=== PATIENT | male | born 1940 | race Hispanic/Latino ===

== ENCOUNTER → 2017-11-24 | Outpatient (CLI) | payer OTHER ==
[~2017-11-24] MED LIST: AMLO5TAB2 PO; CITA-107 PO; ESOM40CA54 PO; HYDR12.530 PO; IOPAMIDOL-370 75 ML VIAL IV ONE; LOSA100T29 PO; METF500T6 PO; METO100T14 PO; TAMS0.4C32 PO
== END | disposition home or self-care (01) ==
LOC: RAH 08:24
PROVIDERS: ATTEND Internal Medicine
DX: N28.1 Cyst of kidney, acquired (principal); N32.89 Other specified disorders of bladder; K76.89 Other specified diseases of liver; K57.90 Diverticulosis of intestine, part unspecified, without perforation or abscess without bleeding; R93.3 Abnormal findings on diagnostic imaging of other parts of digestive tract; Z85.46 Personal history of malignant neoplasm of prostate
CPT/HCPCS: 74178; Q9967

== ENCOUNTER 2017-12-16 09:19 | Day surgery (SDC) | payer OTHER ==
[~2017-12-16] VITALS: Ht 170.2 cm; Wt 67.9 kg
[~2017-12-16 09:19] MED LIST changes: -AMLO5TAB2 PO; -CITA-107 PO; -ESOM40CA54 PO; -HYDR12.530 PO; -IOPAMIDOL-370 75 ML VIAL IV ONE; -LOSA100T29 PO; -METF500T6 PO; -METO100T14 PO; +SODIUM CHLORIDE 0.9% 1000ML 1,000 ML IV ONE; -TAMS0.4C32 PO
[2017-12-16 10:18] VITALS: BP 98/68
[2017-12-16] MEDS ORDERED: HYDR12.530 PO (10:32)
[2017-12-16] MEDS ORDERED: AMLO5TAB2 PO (10:32)
[2017-12-16] MEDS ORDERED: LOSA100T29 PO (10:32)
[2017-12-16] MEDS ORDERED: CITA-107 PO (10:32)
[2017-12-16] MEDS ORDERED: TAMS0.4C32 PO (10:32)
[2017-12-16] MEDS ORDERED: ESOM40CA54 PO (10:32)
[2017-12-16] MEDS ORDERED: METF500T6 PO (10:32)
[2017-12-16] MEDS ORDERED: METO100T14 PO (10:33)
[2017-12-16] MEDS ORDERED: PROPOFOL 1000 MG/100 ML 100 ML IV ONE (11:22)
[2017-12-16] MEDS ORDERED: LEVOFLOXACIN 500 MG/D5W 100 ML 100 ML ONE (11:49)
[2017-12-16 11:58] VITALS: BP 75/37
== END 2017-12-16 13:20 | disposition home or self-care (01) ==
LOC: DAH 09:19 → ENDO 09:19
PROVIDERS: ATTEND Internal Medicine
DX: K76.89 Other specified diseases of liver (principal); K31.89 Other diseases of stomach and duodenum; E78.5 Hyperlipidemia, unspecified; I10 Essential (primary) hypertension; F41.9 Anxiety disorder, unspecified; F32.9 Major depressive disorder, single episode, unspecified; Z90.49 Acquired absence of other specified parts of digestive tract; Z85.46 Personal history of malignant neoplasm of prostate; Z79.899 Other long term (current) drug therapy; Z88.8 Allergy status to other drugs, medicaments and biological substances; K21.0 Gastro-esophageal reflux disease with esophagitis; K44.9 Diaphragmatic hernia without obstruction or gangrene; D12.6 Benign neoplasm of colon, unspecified; K64.9 Unspecified hemorrhoids; Z68.24 Body mass index [BMI] 24.0-24.9, adult; Z80.0 Family history of malignant neoplasm of digestive organs; R63.4 Abnormal weight loss; R93.3 Abnormal findings on diagnostic imaging of other parts of digestive tract; I45.10 Unspecified right bundle-branch block
CPT/HCPCS: 36415; 43238; 82150; 82378; 82948; 93005; A4215; A4606; J1956; J2704; J7030; 43232

== ENCOUNTER → 2018-07-13 | Outpatient (CLI) | payer OTHER ==
[~2018-07-13] MED LIST changes: +AMLO5TAB7 PO; +CITA-107 PO; +ESOM40CA54 PO; +HYDR12.530 PO; +LOSA100T20 PO; +METF-444 PO; +METO100T14 PO; -SODIUM CHLORIDE 0.9% 1000ML 1,000 ML IV ONE; +TAMS0.4C32 PO
== END | disposition home or self-care (01) ==
LOC: RAH 08:31
PROVIDERS: ATTEND Internal Medicine Gastroenterology
DX: K86.2 Cyst of pancreas (principal); N28.1 Cyst of kidney, acquired; K76.89 Other specified diseases of liver; I70.90 Unspecified atherosclerosis; Z90.49 Acquired absence of other specified parts of digestive tract
CPT/HCPCS: 76700

== ENCOUNTER 2019-07-29 06:22 | Emergency (ER) | payer OTHER ==
[~2019-07-29 06:22] MED LIST changes: -AMLO5TAB7 PO; +AMLO5TAB9 PO; -LOSA100T20 PO; +LOSA100T58 PO
[2019-07-29] MEDS ORDERED: HYDROCODONE/ACETAMINOPHEN 5/325 MG TAB ONE (07:25)
== END 2019-07-29 08:39 | disposition home or self-care (01) ==
LOC: EDH 06:22
DX: S20.212A Contusion of left front wall of thorax, initial encounter (principal); M54.5 Low back pain; I10 Essential (primary) hypertension; E78.00 Pure hypercholesterolemia, unspecified; W18.39XA Other fall on same level, initial encounter; Y93.89 Activity, other specified; Y92.89 Other specified places as the place of occurrence of the external cause; Y99.8 Other external cause status
CPT/HCPCS: 71100; 72070; 72100

== ENCOUNTER → 2019-09-05 | Outpatient (CLI) | payer OTHER ==
[~2019-09-05] MED LIST changes: +GADODIAMIDE 10 MMOL/20 ML VIAL IV ONE
== END | disposition home or self-care (01) ==
LOC: RAH 09:37
PROVIDERS: ATTEND Internal Medicine Gastroenterology
DX: K86.2 Cyst of pancreas (principal); R58 Hemorrhage, not elsewhere classified; K76.89 Other specified diseases of liver; R93.3 Abnormal findings on diagnostic imaging of other parts of digestive tract
CPT/HCPCS: 74183; A9579

== ENCOUNTER 2020-01-17 14:00 | Emergency (ER) | payer OTHER ==
[2020-01-17] MEDS ORDERED: ACETAMINOPHEN 325 MG TAB ONE (15:38)
[2020-01-17] MEDS ORDERED: AMOXICILLIN 500 MG CAPSULE PO ONE (16:21)
== END 2020-01-17 17:11 | disposition home or self-care (01) ==
LOC: EDH 14:00
DX: J02.0 Streptococcal pharyngitis (principal); R53.81 Other malaise; R53.83 Other fatigue; E78.00 Pure hypercholesterolemia, unspecified; I10 Essential (primary) hypertension; E11.9 Type 2 diabetes mellitus without complications; Z88.0 Allergy status to penicillin; Z88.1 Allergy status to other antibiotic agents; Z20.828 Contact with and (suspected) exposure to other viral communicable diseases

== ENCOUNTER 2020-01-21 11:05 | Inpatient (IN) | payer OTHER ==
[~2020-01-21] VITALS: Ht 172.7 cm; Wt 74.4 kg
[2020-01-21] MEDS ORDERED: SODIUM CHLORIDE 0.9% 500ML 500 ML IV ONE (13:54)
[2020-01-21] MEDS ORDERED: CEFTRIAXONE SODIUM 1 GM ONE (14:28)
[2020-01-21] MEDS ORDERED: AZITHROMYCIN 500MG+NS 250ML 250 ML IV ONE (14:29)
[2020-01-21] MEDS ORDERED: SODIUM CHLORIDE 0.9% 100 ML IV ONE (14:30)
[2020-01-21] MEDS: SODIUM CHLORIDE 0.9% 1000ML 1,000 ML IV SCH ×2 (17:08→22:30)
[2020-01-21] MEDS ORDERED: ONDANSETRON HCL 4 MG/2 ML VIAL IV PRN (17:15)
[2020-01-21] MEDS ORDERED: HYDRALAZINE HCL 20 MG/ML VIAL IV PRN (17:15)
[2020-01-21] MEDS ORDERED: ACETAMINOPHEN 325 MG TAB PO PRN ×2 (17:15)
[2020-01-21] MEDS ORDERED: GUAIFENESIN-DM 200/20 MG 10 ML PO PRN (17:15)
[2020-01-21] MEDS ORDERED: LACTULOSE 20 GM/30 ML UDCUP PO PRN (17:15)
[2020-01-21] MEDS ORDERED: AZITHROMYCIN 500MG+NS 250ML 250 ML IV SCH (17:15)
[2020-01-21] MEDS ORDERED: FAMOTIDINE 20MG TAB 20 MG TAB ONE (20:42)
[2020-01-21] MEDS ORDERED: DEXAMETHASONE 4 MG TAB ONE (20:43)
[2020-01-22] MEDS: SODIUM CHLORIDE 0.9% 1000ML 1,000 ML IV SCH ×3 (03:08→13:08)
--- NOTE | 2020-01-22 07:59 | NUR ---
Patient still in ER department,awaiting for patient to be transferred to medical floor in order to be able to initiate skilled Physical Therapy Evaluation as ordered by Chanda Contreras,AGACNPBC Addendum: 01/22/20 at 0800 by ISMAEL VELAZCO, PT PT Amended: Links added.
[2020-01-22] MEDS: ASPIRIN 325 MG TABLET PO SCH (09:00)
[2020-01-22] MEDS: FAMOTIDINE 20MG TAB 20 MG TAB PO SCH (09:00)
[2020-01-22] MEDS ORDERED: ASPIRIN 325 MG TABLET ONE (09:34)
[2020-01-22] MEDS ORDERED: FAMOTIDINE 20MG TAB 20 MG TAB ONE ×2 (09:34→21:11)
[2020-01-22] MEDS ORDERED: DEXAMETHASONE 4 MG TAB ONE ×2 (09:34→21:12)
[2020-01-22] MEDS ORDERED: ENOXAPARIN SODIUM 40 MG/0.4 ML SYRINGE SQ ONE (09:35)
[2020-01-22] MEDS ORDERED: BENZONATATE 100 MG CAPSULE PO ONE ×2 (09:35→21:12)
--- NOTE | 2020-01-22 13:49 | NUR ---
SPOKE TO [facility] PATIENT LIVES WITH SP[facility], WHO IS CURRENTLY HOSPITALIZED WITH COVID PATIENT IS PENDING RESULT .PATIENT IS NORMALLY ACTIVE & INDEPENDENT, DRIVES, NO DME OR SERVICES. SPOUSE WAS ADMITTED TUESDAY . DCP IS HOME, [facility] TO PROVIDE TRANSPORT Addendum: 01/22/[address] RN CM Amended: Links added.
[2020-01-22] MEDS ORDERED: AZITHROMYCIN 500MG+NS 250ML 250 ML IV ONE (17:16)
[2020-01-22] MEDS ORDERED: ACETAMINOPHEN 325 MG TAB ONE (17:17)
[2020-01-23] MEDS: SODIUM CHLORIDE 0.9% 1000ML 1,000 ML IV SCH (01:10)
[2020-01-23] MEDS ORDERED: BENZONATATE 100 MG CAPSULE PO ONE ×4 (04:08→21:35)
[2020-01-23] MEDS ORDERED: HYDRALAZINE HCL 20 MG/ML VIAL ONE (04:08)
--- NOTE | 2020-01-23 07:34 | NUR ---
pt. still in ER,awaiting for patient to be transferred to medical floor in order to be able to initiate skilled Physical Therapy Evaluation. Addendum: 01/23/20 at 0736 by ISMAEL VELAZCO PT PT Amended: Links added.
[2020-01-23] MEDS: FAMOTIDINE 20MG TAB 20 MG TAB PO SCH (09:00)
[2020-01-23] MEDS: ENOXAPARIN SODIUM 40 MG/0.4 ML SYRINGE SQ SCH (09:00)
[2020-01-23] MEDS: ASPIRIN 325 MG TABLET PO SCH (09:00)
[2020-01-23] MEDS ORDERED: ASPIRIN 325 MG TABLET ONE (09:10)
[2020-01-23] MEDS ORDERED: DEXAMETHASONE 4 MG TAB ONE ×2 (09:10→21:32)
[2020-01-23] MEDS ORDERED: ENOXAPARIN SODIUM 60 MG/0.6 ML SQ ONE (09:22)
[2020-01-23] MEDS ORDERED: FUROSEMIDE 10 MG/ML 4ML VIAL ONE (12:21)
[2020-01-23] MEDS ORDERED: INSULIN HUMULIN R 100 UNIT/ML 3ML ONE (13:33)
[2020-01-23] MEDS ORDERED: SODIUM CHLORIDE 1,000 MG TAB ONE (15:41)
[2020-01-23] MEDS ORDERED: AZITHROMYCIN 500MG+NS 250ML 250 ML IV ONE (17:28)
[2020-01-23 20:00] VITALS: BP 142/80; PULSE 74; RESP 20
[2020-01-23] MEDS: DEXAMETHASONE 4 MG TAB PO SCH (21:47)
[2020-01-23] MEDS: BENZONATATE 100 MG CAPSULE PO SCH (21:48)
[2020-01-23 23:00] VITALS: BP 154/64; PULSE 72; RESP 20
--- NOTE | 2020-01-24 00:10 | NUR ---
NOTE REPORT GIVEN TO FLOOR NURSE NIYA OVER THE PHONE.
[2020-01-24 00:50] VITALS: BP 158/76; PULSE 63; RESP 18; TEMP 97.8
--- NOTE | 2020-01-24 01:46 | NUR ---
paged benchmark for patient's high blood pressure of 169/76, blood sugar of 202, confusion and his tendencies to get up even though he is very weak. pending call back from ms. villegas
[2020-01-24] MEDS ORDERED: DEXTROSE 50%-WATER 50 ML DISP.SYRIN IV PRN (02:00)
[2020-01-24] MEDS ORDERED: HYDRALAZINE HCL 20 MG/ML VIAL IV PRN (02:00)
[2020-01-24] MEDS ORDERED: LORAZEPAM 2 MG/ML 1 ML VIAL IVP PRN (02:00)
[2020-01-24] MEDS ORDERED: INSULIN GLARGINE 100 UNITS/ML 10 ML VIAL SQ ONE (02:00)
[2020-01-24] MEDS ORDERED: GLUCAGON 1MG KIT 1 MG ML IM PRN (02:00)
--- NOTE | 2020-01-24 02:00 | NUR ---
spoke with ms. villegas from [facility] for a possible sitter since the patient is confused and gets out of bed every 10 minutes. she ordered ativan 0.5 iv prn for agitation, sliding scale 1 for blood glucose, hydralazine 10 mg prn q8 hours for bp systolic >160.
[2020-01-24] MEDS ORDERED: LORAZEPAM 2 MG/ML 1 ML VIAL ONE (02:01)
[2020-01-24 04:59] VITALS: BP 137/80; PULSE 69; RESP 18; TEMP 96.3
[2020-01-24] MEDS: INSULIN HUMULIN R 100 UNIT/ML 3ML SQ SCH ×2 (06:24→11:30)
[2020-01-24 07:30] VITALS: BP 143/67; PULSE 55; RESP 20; TEMP 97.2
[2020-01-24] MEDS: ASPIRIN 325 MG TABLET PO SCH (09:00)
[2020-01-24] MEDS: ENOXAPARIN SODIUM 40 MG/0.4 ML SYRINGE SQ SCH (09:00)
[2020-01-24] MEDS: FAMOTIDINE 20MG TAB 20 MG TAB PO SCH (09:00)
[2020-01-24] MEDS: SODIUM CHLORIDE 1,000 MG TAB PO SCH ×2 (09:00→13:21)
[2020-01-24] MEDS: BENZONATATE 100 MG CAPSULE PO SCH ×2 (09:00→13:21)
[2020-01-24] MEDS: DEXAMETHASONE 4 MG TAB PO SCH (09:00)
--- NOTE | 2020-01-24 10:47 | NUR ---
Patient refusing morning meds. STEVE Scott made aware.
[2020-01-24 12:00] VITALS: BP 167/87; PULSE 60; RESP 20; TEMP 98.3
[2020-01-24 14:16] VITALS: BP 131/72
--- NOTE | 2020-01-24 17:47 | NUR ---
Patient VSS and has no complaints of pain or discomfort.Patient cleared by primary team for DC home. IV removed. DC instructions reviewed with daughter Melida (telephone) and verbalized understanding.
[2020-01-24] MEDS ORDERED: INSULIN GLARGINE 100 UNITS/ML 10 ML VIAL SQ SCH (21:00)
== END 2020-01-24 18:50 | disposition home or self-care (01) | DRG 177 ==
LOC: EDH 11:05 → EDHIP 17:08 → OBSVTOIN 17:08 → 4AH 01-24 00:56
PROVIDERS: ADMIT Internal Medicine; ATTEND Internal Medicine
DX: U07.1 COVID-19 (principal); J12.89 Other viral pneumonia; E87.1 Hypo-osmolality and hyponatremia; K52.9 Noninfective gastroenteritis and colitis, unspecified; I10 Essential (primary) hypertension; E78.5 Hyperlipidemia, unspecified; Z79.899 Other long term (current) drug therapy; Z79.84 Long term (current) use of oral hypoglycemic drugs; Z88.8 Allergy status to other drugs, medicaments and biological substances; Z87.891 Personal history of nicotine dependence

== ENCOUNTER 2020-03-15 08:46 | Emergency (ER) | payer OTHER ==
[~2020-03-15 08:46] MED LIST changes: +AMOX500C2 PO; +ATOR10 PO; +AZIT500T4 PO; +DEXA6TAB PO; -GADODIAMIDE 10 MMOL/20 ML VIAL IV ONE; +HYDR12.54 PO; +METO-409 PO; +SODI100037 PO; +TAMS-1 PO
[2020-03-15 09:50] LABS: APPEARANCE,URINE Clear (CLEAR); BILIRUBIN,URINE Negative (NEGATIVE); COLOR,URINE Yellow (YELLOW); GLUCOSE, URINE (UA) Negative (NEGATIVE); KETONES,URINE Negative (NEGATIVE); LEUKOCYTE ESTERASE ,URINE Negative (NEGATIVE); NITRATE,URINE Negative (NEGATIVE); OCCULT BLOOD,URINE Negative (NEGATIVE); PROTEIN,URINE Trace mg/dL (NEGATIVE)
[2020-03-15 09:51] LABS: BASOPHILS % (AUTO) 0.8 % (0.0-5.0); EOSINOPHILS % (AUTO) 11.5 % (0.0-8.0); HEMATOCRIT 43.4 % (42-54); LYMPHOCYTES % (AUTO) 19.7 % (21.0-51.0); MEAN CORPUSCULAR HEMOGLOBIN 31.8 pg (27.0-33.0); MEAN CORPUSCULAR HGB CONC 34.1 g/dL (32.0-36.0); MEAN CORPUSCULAR VOLUME 93.3 fL (79-99); MONOCYTES % (AUTO) 6.4 % (3.0-13.0); NEUTROPHILS % (AUTO) 60.8 % (40.0-77.0); PLATELET COUNT (AUTO) 139 K/uL (130-400); RED BLOOD CELL COUNT(AUTO) 4.65 MIL/uL (4.50-6.20); RED CELL DISTRIBUTION WIDTH 13.5 % (11.0-15.5); WHITE BLOOD COUNT (AUTO) 5.3 K/uL (4.8-10.8)
[2020-03-15 09:58] LABS: BACTERIA,URINE Rare /HPF (None Seen); RBC,URINE 0-1 /HPF (0-1); SQUAMOUS EPITHELIAL CELL,UR Rare /HPF (0-2); WBC,URINE 0-1 /HPF (0-1)
[2020-03-15 10:07] LABS: INR 0.95 (0.85-1.15); PARTIAL THROMBOPLASTIN TIME 28.1 SEC (26.3-35.5); PROTHROMBIN TIME 10.3 SEC (9.6-11.6)
[2020-03-15] MEDS ORDERED: NITROGLYCERIN 1GM/1 INCH PACKET TD ONE ×2 (10:20→10:38)
[2020-03-15 10:43] LABS: B-TYPE NATRIURETIC PEPTIDE 165 pg/mL (0-100)
[2020-03-15 11:06] LABS: ALBUMIN 3.6 g/dL (3.5-5.0); BILIRUBIN,TOTAL 0.9 mg/dL (0.2-1.0); POTASSIUM 4.8 mmol/L (3.5-5.1); TOTAL PROTEIN, SERUM 7.3 g/dL (6.0-8.3)
[2020-03-15] MEDS ORDERED: ENALAPRILAT DIHYDRATE 1.25MG/ML 1ML VIAL IV ONE (12:58)
== END 2020-03-15 15:08 | disposition home or self-care (01) ==
LOC: EDH 08:46
DX: I10 Essential (primary) hypertension (principal); E78.00 Pure hypercholesterolemia, unspecified; E11.9 Type 2 diabetes mellitus without complications; Z90.49 Acquired absence of other specified parts of digestive tract; Z88.1 Allergy status to other antibiotic agents; Z88.0 Allergy status to penicillin
CPT/HCPCS: 36415; 71045; 80053; 81001; 82550; 83605; 83690; 83880; 84484; 85025; 85610; 85730; 93005; 96365; 96366; 99285; J3490

== ENCOUNTER 2020-08-20 06:09 | Observation (INO) | payer OTHER ==
[~2020-08-20 06:09] MED LIST changes: +AMLO-257 PO; -AMLO5TAB9 PO
[2020-08-20] MEDS ORDERED: MECLIZINE HCL 25 MG TABLET ONE (06:37)
[2020-08-20 06:47] LABS: BASOPHILS % (AUTO) 0.4 % (0.0-5.0); EOSINOPHILS % (AUTO) 0.6 % (0.0-8.0); HEMATOCRIT 43.7 % (42-54); LYMPHOCYTES % (AUTO) 24.9 % (21.0-51.0); MEAN CORPUSCULAR HEMOGLOBIN 31.9 pg (27.0-33.0); MEAN CORPUSCULAR HGB CONC 34.6 g/dL (32.0-36.0); MEAN CORPUSCULAR VOLUME 92.2 fL (79-99); MONOCYTES % (AUTO) 5.7 % (3.0-13.0); NEUTROPHILS % (AUTO) 67.8 % (40.0-77.0); PLATELET COUNT (AUTO) 140 K/uL (130-400); RED BLOOD CELL COUNT(AUTO) 4.74 MIL/uL (4.50-6.20); RED CELL DISTRIBUTION WIDTH 12.9 % (11.0-15.5); WHITE BLOOD COUNT (AUTO) 6.9 K/uL (4.8-10.8)
[2020-08-20 06:56] LABS: INR 1.09 (0.85-1.15); PROTHROMBIN TIME 11.8 SEC (9.6-11.6)
[2020-08-20] MEDS ORDERED: HYDRALAZINE 20MG/ML VIAL ONE (06:56)
[2020-08-20 06:59] LABS: BILIRUBIN,TOTAL 1.1 mg/dL (0.2-1.0); CREATININE 1.1 mg/dL (0.5-1.5); POTASSIUM 3.8 mmol/L (3.5-5.1); TOTAL PROTEIN, SERUM 6.8 g/dL (6.0-8.3)
[2020-08-20 07:04] LABS: APPEARANCE,URINE Clear (CLEAR); BILIRUBIN,URINE Negative (NEGATIVE); COLOR,URINE Yellow (YELLOW); GLUCOSE, URINE (UA) 250 mg/dL (NEGATIVE); KETONES,URINE Negative (NEGATIVE); LEUKOCYTE ESTERASE ,URINE Negative (NEGATIVE); NITRATE,URINE Negative (NEGATIVE); OCCULT BLOOD,URINE Negative (NEGATIVE); PH,URINE 7.5 (5.0-8.0); PROTEIN,URINE POS 2+ mg/dL (NEGATIVE)
[2020-08-20 08:04] LABS: BACTERIA,URINE Rare /HPF (None Seen); RBC,URINE 0-1 /HPF (0-1); WBC,URINE 0-1 /HPF (0-1)
[2020-08-20 08:05] LABS: SQUAMOUS EPITHELIAL CELL,UR None Seen /HPF (0-2)
[2020-08-20] MEDS ORDERED: PROCHLORPERAZINE 10MG/2ML INJ ONE (08:09)
[2020-08-20] MEDS ORDERED: ONDANSETRON 4MG INJ ONE (08:09)
[2020-08-20] MEDS ORDERED: GLUCAGON 1MG KIT 1 MG ML IM PRN (08:30)
[2020-08-20] MEDS ORDERED: MAGNESIUM 2GM PREMIX 50ML 50 ML IV PRN (08:30)
[2020-08-20] MEDS ORDERED: ONDANSETRON 4MG INJ IVP PRN (08:30)
[2020-08-20] MEDS ORDERED: DEXTROSE 50%-WATER 50 ML DISP.SYRIN IV PRN (08:30)
[2020-08-20] MEDS ORDERED: POTASSIUM CHLORIDE 20MEQ/100ML 100 ML IV PRN (08:30)
[2020-08-20] MEDS ORDERED: LIDOCAINE HCL-MPF 1% 2ML VIAL IV PRN (08:30)
[2020-08-20] MEDS ORDERED: FAMOTIDINE 20MG VIAL IV ONE (09:02)
[2020-08-20] MEDS ORDERED: 0.9%NACL 1000ML 1,000 ML IV ONE (09:02)
[2020-08-20] MEDS ORDERED: ENOXAPARIN SODIUM 40 MG/0.4 ML SYRINGE SQ ONE (09:02)
[2020-08-20] MEDS ORDERED: BISA5TAB12 PO (18:45)
[2020-08-20] MEDS ORDERED: BUSP5TAB3 PO (18:45)
[2020-08-20 20:18] VITALS: BP 172/80
[2020-08-20] MEDS: FAMOTIDINE 20MG VIAL IV SCH (22:30)
[2020-08-20] MEDS: 0.9%NACL 1000ML 1,000 ML IV SCH (22:33)
[2020-08-21] VITALS (7 sets, daily range): BP systolic 128–201; BP diastolic 63–95
[2020-08-21] MEDS: ENOXAPARIN SODIUM 40 MG/0.4 ML SYRINGE SQ SCH ×2 (00:09→10:00)
[2020-08-21] MEDS: INSULIN HUMULIN R 100 UNIT/ML 3ML SQ SCH ×5 (05:57→20:50)
[2020-08-21 06:48] LABS: HEMATOCRIT 45.2 % (42-54); MEAN CORPUSCULAR HEMOGLOBIN 31.3 pg (27.0-33.0); MEAN CORPUSCULAR HGB CONC 33.4 g/dL (32.0-36.0); MEAN CORPUSCULAR VOLUME 93.8 fL (79-99); RED BLOOD CELL COUNT(AUTO) 4.82 MIL/uL (4.50-6.20); RED CELL DISTRIBUTION WIDTH 13.2 % (11.0-15.5); WHITE BLOOD COUNT (AUTO) 7.1 K/uL (4.8-10.8)
[2020-08-21 07:02] LABS: CREATININE 1.3 mg/dL (0.5-1.5); POTASSIUM 3.7 mmol/L (3.5-5.1)
[2020-08-21] MEDS: FAMOTIDINE 20MG VIAL IV SCH ×2 (09:58→20:29)
[2020-08-21] MEDS: 0.9%NACL 1000ML 1,000 ML IV SCH (10:01)
[2020-08-21] MEDS ORDERED: BUSPIRONE HCL 5 MG TABLET PO PRN (16:15)
[2020-08-21] MEDS ORDERED: BISACODYL 5 MG TABLET.DR PO PRN (16:15)
[2020-08-21] MEDS ORDERED: AEC81 PO (16:43)
[2020-08-21] MEDS ORDERED: MECL-226 PO (16:43)
[2020-08-21] MEDS ORDERED: HYDRALAZINE 20MG/ML VIAL IV PRN (20:45)
[2020-08-21] MEDS ORDERED: MECLIZINE HCL 25 MG TABLET PO PRN (20:45)
[2020-08-21] MEDS: LOSARTAN 100 MG TABLET PO SCH (21:00)
[2020-08-21] MEDS ORDERED: ATORVASTATIN 20 MG TABLET PO SCH (21:00)
[2020-08-22 00:06] VITALS: BP 126/65
[2020-08-22 03:48] VITALS: BP 158/73
[2020-08-22] MEDS: INSULIN HUMULIN R 100 UNIT/ML 3ML SQ SCH ×2 (05:47→12:46)
[2020-08-22 07:10] VITALS: BP 155/73
[2020-08-22] MEDS: FAMOTIDINE 20MG VIAL IV SCH (08:58)
[2020-08-22] MEDS: LOSARTAN 100 MG TABLET PO SCH (08:58)
[2020-08-22] MEDS ORDERED: LOSARTAN 100 MG TABLET PO SCH (09:00)
[2020-08-22] MEDS ORDERED: TAMSULOSIN HCL 0.4 MG CAP.ER.24H PO SCH (09:00)
[2020-08-22] MEDS ORDERED: CITALOPRAM 20 MG TABLET PO SCH (09:00)
[2020-08-22] MEDS ORDERED: METOPROLOL SUCCINATE 50 MG TAB.SR.24H PO SCH (09:00)
[2020-08-22] MEDS: ENOXAPARIN SODIUM 40 MG/0.4 ML SYRINGE SQ SCH (09:01)
[2020-08-22 12:11] VITALS: BP 122/72
== END 2020-08-22 15:45 | disposition home or self-care (01) ==
LOC: EDH 06:09 → EDHIP 08:17 → 4CH 16:57
PROVIDERS: ADMIT Internal Medicine; ATTEND Internal Medicine
DX: R42 Dizziness and giddiness (principal); Z20.822 Contact with and (suspected) exposure to COVID-19; I10 Essential (primary) hypertension; E78.5 Hyperlipidemia, unspecified; F41.9 Anxiety disorder, unspecified; E11.9 Type 2 diabetes mellitus without complications; I67.82 Cerebral ischemia; R11.0 Nausea; E78.00 Pure hypercholesterolemia, unspecified; Z90.49 Acquired absence of other specified parts of digestive tract; Z79.82 Long term (current) use of aspirin; Z79.84 Long term (current) use of oral hypoglycemic drugs; Z79.899 Other long term (current) drug therapy; Z88.1 Allergy status to other antibiotic agents
CPT/HCPCS: 36415 ×2; 70450; 70544; 70547; 70551; 80048; 80053; 81001; 82948 ×7; 83735; 84484; 85025; 85027; 85610; 85730; 87426; 93005; 93306; 93356; 93880; 96361; 96372 ×2; 96374; 96375; 96376 ×2; 99285; G0378 ×55; J0360 ×2; J0780; J1650 ×3; J1815; J2405; J3490 ×5; J7030; U0003

== ENCOUNTER 2021-07-13 03:49 | Emergency (ER) | payer OTHER ==
[~2021-07-13] VITALS: Ht 165.1 cm; Wt 83.9 kg
[~2021-07-13 03:49] MED LIST changes: +AEC81 PO; -AMLO-257 PO; -AMOX500C2 PO; -AZIT500T4 PO; +BISA5TAB12 PO; +BUSP5TAB3 PO; -DEXA6TAB PO; -ESOM40CA54 PO; -HYDR12.530 PO; +MECL-226 PO; -METO100T14 PO; -SODI100037 PO; -TAMS0.4C32 PO
[2021-07-13 06:09] LABS: BASOPHILS % (AUTO) 0.2 % (0.0-5.0); EOSINOPHILS % (AUTO) 0.4 % (0.0-8.0); LYMPHOCYTES % (AUTO) 17.4 % (21.0-51.0); MEAN CORPUSCULAR HEMOGLOBIN 31.5 pg (27.0-33.0); MEAN CORPUSCULAR HGB CONC 35.7 g/dL (32.0-36.0); MEAN CORPUSCULAR VOLUME 88.3 fL (79-99); MONOCYTES % (AUTO) 6.6 % (3.0-13.0); NEUTROPHILS % (AUTO) 74.9 % (40.0-77.0); PLATELET COUNT (AUTO) 163 K/uL (130-400); RED BLOOD CELL COUNT(AUTO) 4.19 MIL/uL (4.50-6.20); RED CELL DISTRIBUTION WIDTH 12.3 % (11.0-15.5); WHITE BLOOD COUNT (AUTO) 8.2 K/uL (4.8-10.8)
[2021-07-13 06:14] LABS: APPEARANCE,URINE Clear (CLEAR); BILIRUBIN,URINE Negative (NEGATIVE); COLOR,URINE Yellow (YELLOW); GLUCOSE, URINE (UA) Negative (NEGATIVE); KETONES,URINE Trace mg/dL (NEGATIVE); LEUKOCYTE ESTERASE ,URINE Negative (NEGATIVE); NITRATE,URINE Negative (NEGATIVE); OCCULT BLOOD,URINE Negative (NEGATIVE); PROTEIN,URINE Negative (NEGATIVE)
[2021-07-13 06:20] LABS: ALBUMIN 4.1 g/dL (3.5-5.0); BILIRUBIN,TOTAL 1.1 mg/dL (0.2-1.0); CREATININE 1.2 mg/dL (0.5-1.5); POTASSIUM 3.8 mmol/L (3.5-5.1); TOTAL PROTEIN, SERUM 7.1 g/dL (6.0-8.3)
[2021-07-13 08:31] VITALS: BP 173/87
== END 2021-07-13 08:32 | disposition home or self-care (01) ==
LOC: EDH 03:49
DX: B34.9 Viral infection, unspecified (principal); R42 Dizziness and giddiness; E11.9 Type 2 diabetes mellitus without complications; I10 Essential (primary) hypertension; Z79.82 Long term (current) use of aspirin; Z79.84 Long term (current) use of oral hypoglycemic drugs; Z79.899 Other long term (current) drug therapy; Z88.0 Allergy status to penicillin; Z88.1 Allergy status to other antibiotic agents
CPT/HCPCS: 36415; 71045; 80053; 81003; 84484; 85025; 93005

== ENCOUNTER 2024-08-13 11:35 | Emergency (ER) | payer OTHER ==
[~2024-08-13] VITALS: Ht 172.7 cm; Wt 56.7 kg
[~2024-08-13 11:35] MED LIST changes: +BISA-151 PO; -BISA5TAB12 PO; -LOSA100T58 PO; +LOSA100T59 PO
[2024-08-13 11:53] VITALS: BP 153/93; PULSE 63; RESP 16; TEMP 97.9
[2024-08-13] MEDS: GABApentin 100 MG CAPSULE PO SCH (12:30)
--- NOTE | 2024-08-13 12:36 | ERN ---
ED Note History of Present Illness Stated Complaint: AMS, MEDICATION REFILL Chief Complaint: Medication Refill Time Seen by MD: 11:39 Dictation: 84-year-old male presents to the ED with daughter for evaluation of altered mental status. Family reports patient has been verbally aggressive and more agitated than usual stating that patient ran out of his gabapentin medication for aggression. Last pill was taken yesterday and daughter states refill will be given in two days. As per daughter, patient states he wants to go back to his ranch in [place] but she mentioned he no longer lives over there and is currently living with his at home. Patient has an appointment with PCP on Tuesday. Allergies: Coded Allergies: metronidazole (Unverified Allergy, Unknown, 12/16/17) piperacillin (Unverified Allergy, Unknown, 12/16/17) tazobactam (Unverified Allergy, Unknown, 12/16/17) Home Meds Active Scripts Meclizine HCl (Meclizine HCl) 12.5 Mg Tablet, 12.5 MG PO Q6HPRN PRN for DIZZI NESS for 7 Days, #20 TAB 0 Refills Prov:BONITA PRASAD SAP ABAP PROGRAMMER 08/21/20 Aspirin (ASPIRIN 81 MG ECTAB) 81 Mg Ectab, 81 MG PO DAILY for 30 Days, #30 TAB.EC 0 Refills Prov:BONITA PRASAD SAP ABAP PROGRAMMER 08/21/20 Reported Medications Bisacodyl (Bisacodyl) 5 Mg Tablet.dr, 5 MG PO DAILY PRN for CONSTIPATION, TAB 08/20/20 Buspirone HCl (Buspirone HCl) 5 Mg Tablet, 5 MG PO BID PRN for ANXIETY/AGITATION, TAB 08/20/20 Tamsulosin HCl (Flomax) 0.4 Mg Cap.er.24h, 0.4 MG PO DAILY, CAPSULE.DR 01/24/20 Metformin HCl (Metformin HCl) 500 Mg Tablet, 500 MG PO DAILY, TAB 01/24/20 Losartan Potassium (Losartan Potassium) 100 Mg Tablet, 100 MG PO DAILY, TAB 01/24/20 Hydrochlorothiazide (Hydrochlorothiazide) 12.5 Mg Tablet, 12.5 MG PO DAILY, TAB 01/24/20 Metoprolol Succinate (Metoprolol Succinate) 100 Mg Tab.er.24h, 100 MG PO DAILY, TAB 01/24/20 Atorvastatin Calcium (LIPITOR) 20 Mg Tab, 20 MG PO HS, TAB 01/24/20 Citalopram Hydrobromide (Citalopram HBr) 20 Mg Tablet, 20 MG PO DAILY, TAB 01/24/20 Past Medical History Past Medical History: Alcoholism, Diabetes-Type II, Hypertension Surgical History: Other Surgical History Other: PROSTATE SURGERY Review of System Dictation Constitutional: Negative for fever,chills, and weight loss Eyes: Negative for injury, pain,redness, and discharge ENT: Negative for injury,pain or swelling Cardiovascular: Negative for chest pain, palpitations, and edema Respiratory: Negative for shortness of breath, cough, and wheezing, Abdomen/GI: Negative for abdominal pain, nausea, vomiting, diarrhea, and constipation Back: Negative for injury and pain : Negative for injury, bleeding and discharge MS/Extremity: Negative for injury and deformity Skin: Negative for rash, and discoloration Neuro: Negative for headache, weakness, numbness, tingling, and seizure Psych: Positive for altered mental status, agitated Initial Vital Sign VS Vital Signs Date Time Temp Pulse Resp B/P (MAP) Pulse Ox O2 Delivery O2 Flow Rate FiO2 08/13/24 11:53 97.9 63 16 153/93 100 Room Air 0 Physical Exam Dictation General: awake, alert, patient is mildly agitated Head/Face: Normocephalic, atraumatic Eyes: PERRL, EOMI, vision at baseline ENT: oral cavity clear, TMs clear, no signs of infection Neck: Trachea midline, supple, no nuchal rigidity Cardiovascular: RRR, normal S1/S2, No MRGs, no JVD Respiratory: CTAB, no respiratory distress, No rales or wheezes Abdomen: Soft, non-tender, non-distended, normal bowel sounds, no guarding or rebound. Skin: Warm, dry, normal turgor, no rash MS/Extremity: Pulses equal, no cyanosis, neurovascular intact, FROM ED Course ED Course Orders Procedure Category Date Status Time Gabapentin 100 Mg Cap PHA 08/13/24 Complete (Neurontin 100 Mg 12:30 Current Medications Medications (Trade) Dose Ordered Sig/Kaushik Route PRN Reason Start Time Stop Time Status Last Admin Dose Admin Gabapentin (NEURontin 100 mg CAP) 100 mg ONCE PO 08/13/24 12:30 08/13/24 14:08 DC Vital Signs Date Time Temp Pulse Resp B/P (MAP) Pulse Ox O2 Delivery O2 Flow Rate FiO2 08/13/24 11:53 97.9 63 16 153/93 100 Room Air 0 Medical Decision Making MDM MDM: Differential diagnosis: Aggressive behavior just dementia, medication refill Risk of complication and/or morbidity or mortality of patient management: None Medications-Per medication reconciliation Need for hospitalization: Patient does not meet criteria for hospitalization. Need for emergency major/minor surgery: No There are no social concerns with this patient. Prescription drug management Prescriptions will include symptomatic care I independently interpreted the test that were performed, results were reviewed by me and considered findings on radiology if ordered. DX & DISP Disposition: Discharge Departure Impression: Primary Impression: Aggressive behavior due to dementia Condition: Stable Referrals: THIAGO HALL MD (PCP) LORI FRANCES MD Aug 13, 2024 12:36
--- NOTE | 2024-08-13 14:03 | NUR ---
PT NOT IN LOBBY, UNABLE TO GIVE MEDS OR D/C PAPERWORK
== END 2024-08-13 14:08 | disposition home or self-care (01) ==
LOC: EDH 11:35
DX: F03.911 Unspecified dementia, unspecified severity, with agitation (principal); E11.9 Type 2 diabetes mellitus without complications; I10 Essential (primary) hypertension; Z76.0 Encounter for issue of repeat prescription; Z79.82 Long term (current) use of aspirin; Z79.84 Long term (current) use of oral hypoglycemic drugs; Z79.899 Other long term (current) drug therapy; Z88.0 Allergy status to penicillin; Z88.1 Allergy status to other antibiotic agents; Z98.890 Other specified postprocedural states
CPT/HCPCS: 99284